=== PATIENT | female | born 1960 | race Hispanic/Latino ===

== ENCOUNTER → 2018-09-26 | Day surgery (SDC) | payer OTHER ==
[~2018-09-26] MED LIST: ASPIR 8181 MG PO; GLYBURIDE-METF1 EAC1 PO; IRON PO; LOSARTAN POTAS100 MG PO; LYRICA50 MG PO; METOPROLOL SUCC25 MG PO; OR PHACO EYE KIT ONE; PRAVASTATIN SOD10 MG PO; PREOP PHACO EYE KIT ONE; SPIRONOLACTONE25 MG PO; ZEMPLAR2 MCG PO
--- OUTSIDE RECORDS SUMMARY | 2018-09-26 09:06 | XMS REPORT ---
[facility] Address Unknown Phone Unavailable Care Team Providers Care Forklift Technician Name Role Phone Unavailable Unavailable Payers Payer Name Policy Type Policy Number Effective Date Expiration Date Problems This patient has no known problems. Allergies, Adverse Reactions, Alerts Allergy Name Allergy Type Status Severity Reaction(s) Onset Date Inactive Date Treating Clinician Comments No Known Contrast Allergies DA Active U 2008-10-02 00:00:00 No Known Drug Allergies DA Active U 2008-10-02 00:00:00 No Known Food Allergies DA Active U 2008-10-02 00:00:00 No Known Other Allergies DA Active U 2008-10-02 00:00:00 Medications This patient has no known medications.
--- OUTSIDE RECORDS SUMMARY | 2018-09-26 09:06 | XMS REPORT | Clinical Summary ---
Author Author [facility] Address Unknown Phone Unavailable Care Team Providers Care Manager Human Capital Name Role Phone Clarissa Chapin MD PCP Allergies Comments Active Allergy Reactions Severity Noted Date Cough Lisinopril Other (See 12/09/2017 Comments) Meloxicam GI 12/09/2017 Intolerance Nausea and vomiting Nitrofurantoin GI 12/09/2017 Intolerance Medications End Date Status Medication Sig Dispensed Refills Start Date 12/12/2018 Active spironolactone Take 1 tablet 90 tablet 3 (ALDACTONE) 25 MG tablet (25 mg total) 8 by mouth daily. 12/12/2018 Active losartan (COZAAR) 100 MG Take 1 tablet 90 tablet 3 tablet (100 mg 8 total) by mouth daily. Active glyburide-metformin Take 1 tablet 0 (GLUCOVANCE) 5-500 mg per by mouth 8 tablet daily. Active pravastatin (PRAVACHOL) Take 1 tablet 0 10 MG tablet by mouth 8 daily. Active aspirin 81 mg chewable Chew 81 mg 0 tablet daily. 8 03/14/2019 Active paricalcitol (ZEMPLAR) 2 Take 1 90 capsule 3 MCG capsuleIndications: capsule (2 8 Diabetic nephropathy mcg total) by associated with type 2 mouth daily. diabetes mellitus (HCC) 01/03/2018 Discontinued gabapentin (NEURONTIN) Take 1 180 capsule 3 300 mg capsule capsule (300 8 mg total) by mouth 2 (two) times a day. 03/14/2018 Discontinued pregabalin (LYRICA) 25 MG Take 1 180 capsule 0 capsule capsule (25 8 mg total) by mouth 2 (two) times a day for 90 days. 06/12/2018 pregabalin (LYRICA) 25 MG Take 1 180 capsule 0 capsuleIndications: capsule (25 8 Diabetic nephropathy mg total) by associated with type 2 mouth 2 (two) diabetes mellitus (HCC) times a day for 90 days. Active Problems Not on file Encounters Care Team Description Date Type Specialty Isi Ag MD Diabetic nephropathy associated with type 2 diabetes mellitus (HCC) 08/25/2018 Refill Nephrology Patricia Morley MD 04/12/2018 Hospital Radiology Encounter Patricia Morley MD 04/12/2018 Hospital Radiology Encounter Patricia Morley MD 04/12/2018 Hospital Radiology Encounter Patricia Morley MD 04/12/2018 Hospital Radiology Encounter Patricia Morley MD 04/12/2018 Hospital Radiology Encounter Patricia Morley MD Papilloma of left breast (Primary Dx) 04/12/2018 Office Visit General Surgery Isi Ag MD Diabetic nephropathy associated with type 2 diabetes mellitus (HCC) (Primary Dx) 03/14/2018 Office Visit Nephrology Sara Colón MA Proteinuria, unspecified type (Primary Dx) 03/08/2018 Orders Only Nephrology Sara Colón MA 01/03/2018 Orders Only Nephrology Isi Ag MD Proteinuria, unspecified type (Primary Dx) 12/12/2017 Office Visit Nephrology after 09/25/2017 Immunizations Name Dates Previously Given Next Due Hep B, Unspecified 08/16/2017, 07/19/2017 INFLUENZA QUAD 07/19/2017, 05/29/2013 Pneumococcal 06/29/2008 Polysaccharide Family History Medical History Relation Name Comments Diabetes Father Heart failure Father Stroke Maternal Grandfather Pneumonia Maternal Grandmother No Known Problems Mother No Known Problems Paternal Grandfather Stroke Paternal Grandmother Relation Name Status Comments Father Maternal Grandfather Maternal Grandmother Mother Paternal Grandfather Paternal Grandmother Social History Date Tobacco Use Types Packs/Day Years Used Never Smoker Smokeless Tobacco: Never Used Alcohol Use Drinks/Week oz/Week Comments No Sex Assigned at Date Recorded Not on file Industry Job Start Date Occupation Not on file Not on file Not on file Travel End Travel History Travel Start No recent travel history available. Last Filed Vital Signs Time Taken Vital Sign Reading 04/12/2018 1:15 PM CDT Blood Pressure 190/84 04/12/2018 1:15 PM CDT Pulse 72 04/12/2018 1:15 PM CDT Temperature 36.8 C (98.2 F) 04/12/2018 1:15 PM CDT Respiratory Rate 16 04/12/2018 1:15 PM CDT Oxygen Saturation 99% - Inhaled Oxygen - Concentration 04/12/2018 1:15 PM CDT Weight 73.1 kg (161 lb 3.2 oz) 04/12/2018 1:15 PM CDT Height 162.6 cm (5' 4") 04/12/2018 1:15 PM CDT Body Mass Index 27.67 Plan of Treatment Health Maintenance Due Date Last Done Comments DIABETIC RETINAL EYE EXAM 1958 DIABETIC FOOT EXAM 1968 CERVICAL CANCER SCREENING 1979 BREAST CANCER SCREENING 2008 COLON CANCER SCREENING 2008 SHINGLES VACCINES (#1) 2008 INFLUENZA VACCINE 01/11/2019 02/23/2018, 07/19/2017, 05/29/2013 Procedures Comments Procedure Name Priority Date/Time Associated Diagnosis MICROALBUMIN, URINE, Routine 05/23/2018 Diabetic nephropathy RANDOM 7:21 AM GUEST EXPERIENCE CAPTAIN associated with type 2 diabetes mellitus (HCC) BASIC METABOLIC PANEL Routine 05/23/2018 Diabetic nephropathy 7:21 AM GUEST EXPERIENCE CAPTAIN associated with type 2 diabetes mellitus (HCC) MAMMO EXTERNAL STUDY Routine 03/20/2018 9:15 AM CDT BASIC METABOLIC PANEL Routine 03/09/2018 Proteinuria, unspecified 7:39 AM CDT type MICROALBUMIN, URINE, Routine 03/09/2018 Proteinuria, unspecified RANDOM 7:39 AM CDT type BREAST EXTERNAL STUDY Routine 03/03/2018 9:07 AM CDT after 09/25/2017 Results * Microalbumin, urine, random (05/23/2018 7:21 AM GUEST EXPERIENCE CAPTAIN) Only the most recent of 2 results within the time period is included. Microalbumin, urine 1,449.2 Not Estab. ug/mL [facility] Comment: Results confirmed on dilution. Specimen Urine Narrative Performed At Performed at:[facility] [address] [place], [id number] Back End Developer: Isac Callaway MD, Phone:[phone] Performing Organization Address [facility] Phone Number [email or web address] * Basic metabolic panel (05/23/2018 7:21 AM GUEST EXPERIENCE CAPTAIN) Only the most recent of 2 results within the time period is included. Glucose 135 (H) 65 - 99 mg/dL [facility] BUN, whole blood 28 (H) 6 - 24 mg/dL [facility] Creatinine 0.74 0.57 - 1.00 mg/dL [facility] EGFR Non-Afr. Kosovan 89 >59 mL/min/1.73 [facility] EGFR 103 >59 mL/min/1.73 [facility] BUN/creatinine ratio 38 (H) 9 - 23 [facility] Sodium 138 134 - 144 mmol/L [facility] Potassium 4.9 3.5 - 5.2 mmol/L [facility] Chloride 101 96 - 106 mmol/L [facility] CO2 24 20 - 29 mmol/L [facility] Calcium 9.8 8.7 - 10.2 mg/dL [facility] Specimen Blood Narrative Performed At Performed at: - [facility] [place], [id number] Back End Developer: Isac Callaway MD, Phone:[phone] Performing Organization Address [facility] Phone Number [facility] * Mammo External Study (03/20/2018 9:15 AM CDT) Narrative Performed At This exam was not acquired at a [facility] facility and has not been [facility] interpreted by a [facility] Provider.The exam was imported into our imaging system for comparisons purposes. Performing Organization Address City/State/Zipcode Phone Number [facility] [address] [place] [address] * US Breast External Study (03/03/2018 9:07 AM CDT) Narrative Performed At This exam was not acquired at a [facility] facility and has not been [facility] interpreted by a [facility] Provider.The exam was imported into our imaging system for comparisons purposes. Performing Organization Address City/State/Zipcode Phone Number [facility] [address] [place] [address] after 09/25/2017 Insurance Payer Benefit Subscriber ID Type Phone Address Plan / Group [facility] xxxxxxxxx HMO/PPO THCARE CHOICE/CHO ICE + Advance Directives Patient has advance care planning documents on file. For more information, ruiz paniagua contact: Ángel Chu [address] [place] [address]
[2018-09-26 11:40] VITALS: BP 151/69
== END | disposition home or self-care (01) ==
LOC: OR 09:04
PROVIDERS: ATTEND Ophthalmology
DX: H25.12 Age-related nuclear cataract, left eye (principal); I25.10 Atherosclerotic heart disease of native coronary artery without angina pectoris; I25.2 Old myocardial infarction; I10 Essential (primary) hypertension; E78.5 Hyperlipidemia, unspecified; E11.9 Type 2 diabetes mellitus without complications; Z79.82 Long term (current) use of aspirin; Z79.84 Long term (current) use of oral hypoglycemic drugs
CPT/HCPCS: 36415; 82948

== ENCOUNTER → 2018-10-10 | Day surgery (SDC) | payer OTHER ==
[~2018-10-10] MED LIST changes: +FENTANYL CITRATE/PF 100MCG/2 ML INJ ONE; +MIDAZOLAM HCL 2 MG/2 ML VIAL ONE
[2018-10-10 13:15] VITALS: BP 131/64
== END | disposition home or self-care (01) ==
LOC: OR 10:15
PROVIDERS: ATTEND Ophthalmology
DX: H25.11 Age-related nuclear cataract, right eye (principal); D64.9 Anemia, unspecified; E11.40 Type 2 diabetes mellitus with diabetic neuropathy, unspecified; E78.2 Mixed hyperlipidemia; I10 Essential (primary) hypertension; Z79.82 Long term (current) use of aspirin; Z79.84 Long term (current) use of oral hypoglycemic drugs
CPT/HCPCS: 36415; 66984; 82948; J2250; V2632

== ENCOUNTER → 2023-06-28 | Day surgery (SDC) | payer MEDICARE ==
[2023-06-23 09:02] LABS: BASOPHILS % 0.5 % (0.0-1.0); EOSINOPHILS # (AUTO) 0.2 (0.0-0.4); EOSINOPHILS % 2.2 % (0.0-6.0); HEMATOCRIT 33.8 % (34.2-44.1); HEMOGLOBIN 10.5 g/dL (12.0-16.0); LYMPHOCYTES % 22.8 % (18.0-39.1); MEAN CORPUSCULAR HEMOGLOBIN 27.9 pg (28-32); MEAN CORPUSCULAR HGB CONC 31.1 g/dL (31-35); MEAN CORPUSCULAR VOLUME 89.9 fL (81-99); MONOCYTES # (AUTO) 0.5 (0.2-0.8); MONOCYTES % 5.4 % (4.4-11.3); NEUTROPHILS % 68.5 % (38.7-80.0); PLATELET COUNT 239 x10e3/uL (140-360); RED BLOOD COUNT 3.76 x10e6/uL (3.6-5.1); RED CELL DISTRIBUTION WIDTH 12.8 % (11.7-14.4); WHITE BLOOD COUNT 8.78 x10e3/uL (4.8-10.8)
[2023-06-23 09:46] LABS: ANION GAP 14.6 mmol/L (8-16); CALCIUM 9.2 mg/dL (8.4-10.2); CREATININE, SERUM 1.16 mg/dL (0.57-1.11); POTASSIUM 3.6 mmol/L (3.5-5.1)
[~2023-06-28] MED LIST changes: +BUPIVACAINE HCL 0.5% INJ 30 ML VIAL INJ ONE; +DEXAMETHASONE SOD PHOS INJ 4 MG/ML SDV ONE; +EPINEPHRINE HCL 1:1000 1ML 1 MG/ML AMP ONE; +JARDIANCE10 MG PO; +KETOROLAC TROMETHAMINE 30 MG/ML VIAL ONE; +LACTATED RINGER'S 1,000 ML ONE; +LIDOCAINE 2% /EPINEPHRINE 20 ML SDV INJ ONE; +LIDOCAINE HCL 2% LOCAL INJ 5 ML SDV VIAL INJ ONE; +MORINGA PO; +ONDANSETRON HCL INJ 2MG/ML 2ML 2 MG/ML VIAL ONE; -OR PHACO EYE KIT ONE; -PREOP PHACO EYE KIT ONE; +PROPOFOL IV EMULSION 10 MG/ML 20 ML VIAL ONE; +ROCURONIUM BROMIDE 10 MG/ML 5ML VIAL IV ONE; +SEVOFLURANE INHAL SOLN 250 ML PEN BTL ONE; +TRULICITY1.5 MG/0.5; +VITAMIN D3100 GM
[2023-06-28] MEDS: HYDRALAZINE HCL 20 MG/ML VIAL ONE ×4 (10:53→11:25)
[2023-06-28 11:50] VITALS: BP 154/64; PULSE 90; RESP 17; O2SAT 97
== END | disposition home or self-care (01) ==
LOC: OR 07:55
PROVIDERS: ATTEND Specialist
DX: S52.572A Other intraarticular fracture of lower end of left radius, initial encounter for closed fracture (principal); E11.9 Type 2 diabetes mellitus without complications; W18.39XA Other fall on same level, initial encounter; Z01.810 Encounter for preprocedural cardiovascular examination; Z01.812 Encounter for preprocedural laboratory examination; Z01.818 Encounter for other preprocedural examination; Z79.82 Long term (current) use of aspirin; Z79.84 Long term (current) use of oral hypoglycemic drugs; Z79.85 Long-term (current) use of injectable non-insulin antidiabetic drugs; Z79.899 Other long term (current) drug therapy
CPT/HCPCS: 25608; 36415 ×2; 71046; 80048; 82948; 85025; 93005; C1713 ×7; J0171; J0360; J0690; J1100; J1885; J2001; J2250; J2405; J2704; J3010; J7121; 76000